=== PATIENT | female | born 1985 | race African-American/Black ===

== ENCOUNTER 2019-01-11 22:59 | Emergency (ER) | payer BC ==
[~2019-01-11] VITALS: Ht 170.2 cm; Wt 81.7 kg
[2019-01-12] MEDS ORDERED: STRATTERA80 MG PO (00:01)
[2019-01-12] MEDS ORDERED: LATUDA80 MG PO (00:01)
[2019-01-12] MEDS ORDERED: TRAZODONE HCL100 MG PO (00:02)
[2019-01-12] MEDS ORDERED: BUSPIRONE HCL10 MG PO (00:04)
[2019-01-12 00:31] LABS: ABSOLUTE NEUTROPHILS 4.6 thou/uL (1.4-8.2); BASOPHILS 0.4 % (0.0-2.0); EOSINOPHILS 1.2 % (0.0-3.0); HEMATOCRIT 39.1 % (37.0-47.0); HEMOGLOBIN 13.3 gm/dL (12.0-15.0); LYMPHOCYTES 37.5 % (24.0-44.0); MCH 32.7 pg (26.0-34.0); MCHC 33.9 g/dL (28.0-37.0); MCV 96.3 fL (80.0-100.0); MONOCYTES 7.4 % (1.0-8.0); PLATELET COUNT 244 thou/uL (150-400); POLYS 53.5 % (36.0-66.0); RBC 4.06 mil/uL (4.20-5.00); RDW 12.8 % (10.5-14.5); WBC 8.7 thou/uL (4.0-11.0)
[2019-01-12 00:38] LABS: CALCIUM 8.7 mg/dL (8.5-10.1); CREATININE 0.8 mg/dL (0.6-1.0); POTASSIUM 3.3 mmol/L (3.5-5.1)
[2019-01-12 00:44] LABS: ALBUMIN 3.6 g/dL (3.4-5.0); TOTAL BILIRUBIN 0.3 mg/dL (<0.1-1.0); TOTAL PROTEIN 7.5 g/dL (6.4-8.2)
[2019-01-12 02:11] LABS: URINE BILIRUBIN NEGATIVE (Negative); URINE BLOOD NEGATIVE (Negative); URINE CLARITY SL CLOUDY; URINE COLOR YELLOW; URINE GLUCOSE-RANDOM* NEGATIVE (Negative); URINE KETONES 1+ (Negative); URINE LEUKOCYTES-REFLEX NEGATIVE (Negative); URINE NITRITE-REFLEX NEGATIVE (Negative); URINE PROTEIN (DIPSTICK) NEGATIVE (Negative)
[2019-01-12 03:28] VITALS: BP 162/107
== END 2019-01-12 03:28 | disposition home or self-care (01) ==
LOC: ER 22:59
PROVIDERS: Emergency Medicine
DX: K76.89 Other specified diseases of liver (principal); R10.84 Generalized abdominal pain; I10 Essential (primary) hypertension; F25.9 Schizoaffective disorder, unspecified; Z88.8 Allergy status to other drugs, medicaments and biological substances; Z90.710 Acquired absence of both cervix and uterus

== ENCOUNTER 2019-05-15 03:15 | Emergency (ER) | payer BC, OTHER ==
[~2019-05-15] VITALS: Ht 170.2 cm; Wt 85.3 kg
[~2019-05-15 03:15] MED LIST: BUSPIRONE HCL10 MG PO; LATUDA80 MG PO; STRATTERA80 MG PO; TRAZODONE HCL100 MG PO
[2019-05-15 03:50] LABS: ABSOLUTE NEUTROPHILS 2.2 thou/uL (1.4-8.2); BASOPHILS 0.5 % (0.0-2.0); EOSINOPHILS 1.4 % (0.0-3.0); HEMATOCRIT 40.7 % (37.0-47.0); HEMOGLOBIN 13.7 gm/dL (12.0-15.0); LYMPHOCYTES 49.8 % (24.0-44.0); MCH 31.6 pg (26.0-34.0); MCHC 33.6 g/dL (28.0-37.0); MCV 94.1 fL (80.0-100.0); MONOCYTES 6.4 % (1.0-8.0); PLATELET COUNT 250 thou/uL (150-400); POLYS 41.9 % (36.0-66.0); RBC 4.33 mil/uL (4.20-5.00); RDW 12.1 % (10.5-14.5); WBC 5.2 thou/uL (4.0-11.0)
[2019-05-15 03:56] LABS: CALCIUM 8.6 mg/dL (8.5-10.1); POTASSIUM 3.5 mmol/L (3.5-5.1)
[2019-05-15 04:03] LABS: ALBUMIN 3.5 g/dL (3.4-5.0); TOTAL BILIRUBIN 0.3 mg/dL (<0.1-1.0); TOTAL PROTEIN 7.3 g/dL (6.4-8.2)
[2019-05-15 04:50] LABS: URINE BILIRUBIN NEGATIVE (Negative); URINE BLOOD 3+ (Negative); URINE CLARITY CLEAR; URINE COLOR YELLOW; URINE GLUCOSE-RANDOM* NEGATIVE (Negative); URINE KETONES NEGATIVE (Negative); URINE LEUKOCYTES-REFLEX NEGATIVE (Negative); URINE NITRITE-REFLEX NEGATIVE (Negative); URINE PROTEIN (DIPSTICK) NEGATIVE (Negative); URINE SPECIFIC GRAVITY 1.025 (1.005-1.035); URINE UROBILINOGEN 0.2 E.U./dl (0.2-1.0)
[2019-05-15] MEDS ORDERED: NAPROSYN500 MG PO (05:00)
[2019-05-15 05:01] LABS: SQUAMOUS 0-3 Few /LPF (0-3); URINE WBC-REFLEX 0-5 Rare /HPF (0-5)
[2019-05-15 05:02] LABS: BACTERIA-REFLEX 1-9 Few /HPF (None Seen); CASTS None Seen /LPF (None Seen); CRYSTALS None Seen /LPF (None Seen); MUCUS 4-6 Moderate strn/LPF (None Seen)
[2019-05-15 06:30] VITALS: BP 144/92
== END 2019-05-15 08:52 | disposition home or self-care (01) ==
LOC: ER 03:15
PROVIDERS: Emergency Medicine
DX: R10.84 Generalized abdominal pain (principal); R10.31 Right lower quadrant pain; R10.32 Left lower quadrant pain; R11.2 Nausea with vomiting, unspecified; I10 Essential (primary) hypertension; F25.9 Schizoaffective disorder, unspecified; Z88.8 Allergy status to other drugs, medicaments and biological substances; N80.9 Endometriosis, unspecified; Z90.711 Acquired absence of uterus with remaining cervical stump

== ENCOUNTER 2020-06-03 00:37 | Emergency (ER) | payer BC ==
[~2020-06-03] VITALS: Ht 175.3 cm; Wt 88.5 kg
--- NOTE | ~2020-06-03 | EMS ---
[facility] [address] [place] [address] EMS Patient Care Report Name: DAWN REEVES Room #: REG MARY Lira#: [id number] Admission: 06/03/20 Attend Phys: Discharge: Date of : 83 Report #: [id number] THIS REPORT FOR: //name// Report Transmitted: 06/03/2020 01:30 EMS Care Summary [place], [place]/[facility] Incident [id number] @ 06/03/2020 00:10 Incident Location [address] [place], [place] [id number] Patient DAWN REEVES Female, 34 Years 1985 Patient Address [address] [place] [address] Patient History Other,Asthma, Patient Allergies No known allergies, Patient Medications Lamictal, Benztropine, Trazodone, Chief Complaint LOWER ABD/ PELVIC PAIN Disposition Transported No Lights/[place] Dispatch Reason Abdominal Pain/Problems Transported To [facility] Narrative UPON ARRIVAL PT AMBULATING OUT TO AMBULANCE WITH [facility]. PT HAS BEEN HAVING INCREASED ABD/ PELVIC PAIN FOR 3 DAYS NOW. PT HAS A HX. PT HAS ALSO HAD [facility] [address] [place] [address] EMS Patient Care Report Name: DAWN REEVES Room #: REG Helen.#: [id number] Admission: 06/03/20 Attend Phys: Discharge: Date of : 83 Report #: [id number] N/V WITH IT. PT TRANSPORTED TO [facility] Initial Vitals @00:23P: 84,BP: 166/101,CO: 0,SpO2: 100, @00:31P: 83,R: 16,BP: 134/112,GCS: 15,CO: 0,SpO2: 100,Revised Trauma: 12, @00:20P: 98,R: 16,BP: 177/125,Pain: 10/10,GCS: 15,SpO2: 98,Revised Trauma: 12, Assessments @00:18MENTAL:Person Oriented,Time Oriented,Event Oriented,Place Oriented,SKIN:HEENT:Head/Face: No Abnormalities,LUNG SOUNDS:General: Nausea,Left Lower: Other,Right Lower: Other,Left Upper: No Abnormalities,Right Upper: No Abnormalities,ABDOMEN:General: Nausea,Left Lower: Other,Right Lower: Other,Left Upper: No Abnormalities,Right Upper: No Abnormalities,PELVIS//GI:EXTREMITIES:Left Arm: No Abnormalities,Right Arm: No Abnormalities,Left Leg: No Abnormalities,Right Leg: No Abnormalities,PULSE:Radial: 2+ Normal,NEURO:No Abnormalities, Impression Abdominal Pain Procedures @00:18ALS AssessmentResponse: UnchangedSucceeded Timeline 00:07,Call Received 00:07,Dispatch Notified 00:10,Dispatched 00:10,En Route 00:15,On Scene 00:16,At Patient 00:18,ALS Assessment,Response: UnchangedSucceeded, 00:20,BP: 177/125 M,PULSE: 98,RR: 16 R,SPO2: 98 Ox,ETCO2: ,BG: ,PAIN: 10,GCS: 15, 00:20,Depart Scene 00:23,BP: 166/101 M,PULSE: 84,RR: R,SPO2: 100 Ox,ETCO2: ,BG: ,PAIN: ,GCS: , 00:31,BP: 134/112 M,PULSE: 83,RR: 16 R,SPO2: 100 Ox,ETCO2: ,BG: ,PAIN: ,GCS: 15, 00:34,At Destination 00:47,Call Closed Disclaimer v1.1 Copyright 2020 [employer] This EMS Care Summary contains data elements from the applicable legal record (which may be displayed differently). It is designed to provide pertinent information for the following purposes: continuity of care, clinical quality, and state data reporting. The complete legal record is available to ED staff [address] [address] EMS Patient Care Report Name: DAWN REEVES Room #: REG MARY Lira#: [id number] Admission: 06/03/20 Attend Phys: Discharge: Date of : 83 Report #: [id number] and administrators of the receiving hospital in [employer]'s Patient Tracker. All data is provided "as is."
--- NOTE | ~2020-06-03 | EMS ---
[facility] [address] [place] [address] EMS Patient Care Report Name: DAWN REEVES Room #: REG MARY Lira#: [id number] Admission: 06/03/20 Attend Phys: Discharge: Date of : 83 Report #: [id number] THIS REPORT FOR: //name// Report Transmitted: 06/03/2020 01:50 EMS Care Summary [place], [place]/[facility] Incident [id number] @ 06/03/2020 00:10 Incident Location [address] [place], [place] [id number] Patient DAWN REEVES Female, 34 Years 1985 Patient Address [address] [address] Patient History Other,Asthma, Patient Allergies No known allergies, Patient Medications Lamictal, Benztropine, Trazodone, Chief Complaint LOWER ABD/ PELVIC PAIN Disposition Transported No Lights/[place] Dispatch Reason Abdominal Pain/Problems Transported To [facility] Narrative UPON ARRIVAL PT AMBULATING OUT TO AMBULANCE WITH [facility]. PT HAS BEEN HAVING INCREASED ABD/ PELVIC PAIN FOR 3 DAYS NOW. PT HAS A HX. PT HAS ALSO HAD [facility] [address] [place] [address] EMS Patient Care Report Name: DAWN REEVES Room #: REG Helen.#: [id number] Admission: 06/03/20 Attend Phys: Discharge: Date of : 83 Report #: [id number] N/V WITH IT. PT TRANSPORTED TO [facility] Initial Vitals @00:23P: 83,BP: 166/101,CO: 0,SpO2: 100, @00:31P: 83,R: 16,BP: 134/112,GCS: 15,CO: 0,SpO2: 100,Revised Trauma: 12, @00:20P: 98,R: 16,BP: 177/125,Pain: 10/10,GCS: 15,SpO2: 98,Revised Trauma: 12, Assessments @00:18MENTAL:Person Oriented,Time Oriented,Event Oriented,Place Oriented,SKIN:HEENT:Head/Face: No Abnormalities,LUNG SOUNDS:General: Nausea,Left Lower: Other,Right Lower: Other,Left Upper: No Abnormalities,Right Upper: No Abnormalities,ABDOMEN:General: Nausea,Left Lower: Other,Right Lower: Other,Left Upper: No Abnormalities,Right Upper: No Abnormalities,PELVIS//GI:EXTREMITIES:Left Arm: No Abnormalities,Right Arm: No Abnormalities,Left Leg: No Abnormalities,Right Leg: No Abnormalities,PULSE:Radial: 2+ Normal,NEURO:No Abnormalities, Impression Abdominal Pain Procedures @00:18ALS AssessmentResponse: UnchangedSucceeded Timeline 00:07,Call Received 00:07,Dispatch Notified 00:10,Dispatched 00:10,En Route 00:15,On Scene 00:16,At Patient 00:18,ALS Assessment,Response: UnchangedSucceeded, 00:20,BP: 177/125 M,PULSE: 98,RR: 16 R,SPO2: 98 Ox,ETCO2: ,BG: ,PAIN: 10,GCS: 15, 00:20,Depart Scene 00:23,BP: 166/101 M,PULSE: 84,RR: R,SPO2: 100 Ox,ETCO2: ,BG: ,PAIN: ,GCS: , 00:31,BP: 134/112 M,PULSE: 83,RR: 16 R,SPO2: 100 Ox,ETCO2: ,BG: ,PAIN: ,GCS: 15, 00:34,At Destination 00:47,Call Closed Disclaimer v1.1 Copyright 2020 [employer] This EMS Care Summary contains data elements from the applicable legal record (which may be displayed differently). It is designed to provide pertinent information for the following purposes: continuity of care, clinical quality, and state data reporting. The complete legal record is available to ED staff [address] [address] EMS Patient Care Report Name: DAWN REEVES Room #: REG MARY Lira#: [id number] Admission: 06/03/20 Attend Phys: Discharge: Date of : 83 Report #: [id number] and administrators of the receiving hospital in [employer]'s Patient Tracker. All data is provided "as is."
[~2020-06-03 00:37] MED LIST changes: +NAPROSYN500 MG PO
[2020-06-03 01:18] LABS: ABSOLUTE NEUTROPHILS 3.4 thou/uL (1.4-8.2); BASOPHILS 1.1 % (0.0-2.0); EOSINOPHILS 2.5 % (0.0-3.0); HEMATOCRIT 39.5 % (37.0-47.0); HEMOGLOBIN 13.6 gm/dL (12.0-15.0); LYMPHOCYTES 30.8 % (24.0-44.0); MCH 33.2 pg (26.0-34.0); MCHC 34.4 g/dL (28.0-37.0); MCV 96.6 fL (80.0-100.0); MONOCYTES 8.8 % (1.0-8.0); PLATELET COUNT 243 thou/uL (150-400); POLYS 56.8 % (36.0-66.0); RBC 4.09 mil/uL (4.20-5.00); RDW 12.9 % (10.5-14.5)
[2020-06-03 01:22] LABS: CALCIUM 9.1 mg/dL (8.5-10.1); CREATININE 0.9 mg/dL (0.6-1.0); POTASSIUM 3.4 mmol/L (3.5-5.1)
[2020-06-03 01:27] LABS: ALBUMIN 4.1 g/dL (3.4-5.0); TOTAL BILIRUBIN 0.4 mg/dL (0.2-1.0); TOTAL PROTEIN 8.5 g/dL (6.4-8.2)
[2020-06-03 02:51] LABS: URINE BILIRUBIN NEGATIVE (Negative); URINE BLOOD NEGATIVE (Negative); URINE CLARITY CLEAR; URINE COLOR YELLOW; URINE GLUCOSE-RANDOM* NEGATIVE (Negative); URINE KETONES NEGATIVE (Negative); URINE LEUKOCYTES-REFLEX NEGATIVE (Negative); URINE NITRITE-REFLEX NEGATIVE (Negative); URINE PROTEIN (DIPSTICK) NEGATIVE (Negative); URINE UROBILINOGEN 0.2 E.U./dl (0.2-1.0)
[2020-06-03 03:27] VITALS: BP 126/74
--- NOTE | 2020-06-03 08:28 | EKG ---
[facility] [place] [address] ELECTROCARDIOGRAM REPORT Name: LALADAWN Antonia Room #: DEP [facility]#: [id number] Admission: 06/03/20 Attend Phys: Discharge: 06/03/20 Date of : 83 Report #: [id number] THIS REPORT FOR: cc: NO FAMILY PHYSICIAN or PCP NO FAMILY PHYSICIAN or PCP Jeremiah Hatch MD ~ THIS REPORT FOR: //name// [facility] ED Test Date: 2020-06-03 Test Time: 00:44:51 Pat Name: DAWN REEVES Department: Room: Gender: Laboratory Miller: : 1985 Requested By: Jagdeep Landeros Order Number: [id number] : Jeremiah Hatch Measurements Intervals [place] Rate: 86 P: 44 [place]: 155 QRS: 17 QRSD: 84 T: 41 QT: 369 QTc: 442 Interpretive Statements Sinus rhythm No previous ECG available for comparison Electronically Signed On 06-03-2020 8:28:18 CDT by Jeremiah Hatch [email or web address] <ELECTRONICALLY SIGNED> By: Jeremiah Hatch MD 06/03/20 0828 0044 0044 Jeremiah Hatch MD /ANDERS
== END 2020-06-03 03:30 | disposition home or self-care (01) ==
LOC: ER 00:37
PROVIDERS: Emergency Medicine
DX: R10.30 Lower abdominal pain, unspecified (principal); K62.89 Other specified diseases of anus and rectum; R10.2 Pelvic and perineal pain; R31.9 Hematuria, unspecified; M25.551 Pain in right hip; M25.552 Pain in left hip; I10 Essential (primary) hypertension; Z90.711 Acquired absence of uterus with remaining cervical stump; Z79.899 Other long term (current) drug therapy; Z88.8 Allergy status to other drugs, medicaments and biological substances